=== PATIENT | male | born 1975 | race African-American/Black ===

== ENCOUNTER 2016-05-25 04:52 | Emergency (ER) | payer OTHER ==
[~2016-05-25] VITALS: Ht 182.9 cm; Wt 93.2 kg
[~2016-05-25 04:52] MED LIST: ATOR10TA PO; COMPTAB16 PO; HYDR-2768 PO; VALT1TAB26 PO
[2016-05-25 04:59] VITALS: BP 158/106; PULSE 66; RESP 16; O2SAT 98
[2016-05-25] MEDS ORDERED: ATOR10TA15 PO (05:14)
[2016-05-25] MEDS ORDERED: VALT1TAB PO (05:15)
[2016-05-25] MEDS ORDERED: INDO50CA PO (05:40)
[2016-05-25] MEDS ORDERED: PRED50 PO (05:40)
--- NOTE | 2016-05-25 05:40 | PD ---
HPI Chief Complaint: Musculoskeletal Complaint Time Seen by Provider: 05:26 Travel History International Travel<30 days: No Contact w/Intl Traveler<30days: No Traveled to known affect area: No History of Present Illness HPI The patient is a 40-year-old male with a history of gout who complains of right first metatarsal phalangeal joint pain/swelling since 6 PM yesterday. He also has some joint pain around Lisfranc's joint on that same foot. He denies any fever. He denies any other joint pain except these 2 joints. PFSH Past Medical History Cancer: No Cardiovascular Problems: No High Cholesterol: Yes (BEFORE WEIGHT LOSS) Diabetes: Yes (BEFORE WEIGHT LOSS) Patient Takes Glucophage: No Diminished Hearing: No Endocrine: No Gastrointestinal Disorders: Yes (ESOPHAGITIS) GERD: Yes Gout: Yes Genitourinary: No Hepatitis: No Hypertension: Yes (NO MEDS NOW) Immune Disorder: Yes (HIV POSITIVE: DIAGNOSED 2002) Musculoskeletal: Yes (GOUTY ARTHRITIS) Neurologic: No Psychiatric: No Reproductive: No Thyroid Disease: No Tetanus Vaccination: < 5 Years ?: Not Past Surgical History Abdominal Surgery: Yes (GASTRIC SLEEVE-03/31/15: HAS LOST 140LBS STATED ) AICD: No Body Medical Devices: METAL APPLICANCE LT KNEE SINCE AGE 12 Joint Replacement: No Neurologic Surgery: No Oral Surgery: Yes (WISDOM TEETH) Pacemaker: No Other Surgery: Yes (L KNEE) Social History Alcohol Use: Yes ("ONLY DRINK ON THE WEEKENDS") Tobacco Use: Yes (1/2 PPD) Substance Use: No Allergies-Medications (Allergen,Severity, Reaction): Coded Allergies: Penicillin (Verified Allergy, Severe, ITCHY RASH, 01/23/16) Amoxicillin (Verified Allergy, Mild, RASH, 01/23/16) *MDRO Multi-Drug Resistant Organism (Verified Adverse Reaction, Unknown, ) MRSA Arm wound 2010 Reported Meds & Prescriptions Reported Meds & Active Scripts Active Reported Valtrex (Valacyclovir HCl) 1 Gm Tab 1,000 Mg PO DAILY Atorvastatin (Atorvastatin Calcium) 10 Mg Tab 10 Mg PO HS Review of Systems Except as stated in HPI: all other systems reviewed are Neg Physical Exam Narrative GENERAL: Well-nourished, well-developed patient in moderate apparent distress with his right first metatarsal/phalangeal joint pain. His vital signs show blood pressure 158/106 but the rest the vital signs are normal.. SKIN: Warm and dry. HEAD: Normocephalic. EYES: No scleral icterus. No injection or drainage. NECK: Supple, trachea midline. No JVD or lymphadenopathy. CARDIOVASCULAR: Regular rate and rhythm without murmurs, gallops, or rubs. RESPIRATORY: Breath sounds equal bilaterally. No accessory muscle use. GASTROINTESTINAL: Abdomen soft, non-tender, nondistended. MUSCULOSKELETAL: No cyanosis, or edema. There is some swelling and minimal redness around the first metatarsal phalangeal joint on the right. There is also tenderness at Lisfranc's joint on the right foot. No swelling is noted there. BACK: Nontender without obvious deformity. No CVA tenderness. Data Data Last Documented VS Vital Signs Date Time Temp Pulse Resp B/P Pulse Ox O2 Delivery O2 Flow Rate FiO2 05/25/16 04:59 66 16 158/106 98 Room Air MDM Medical Decision Making Medical Screen Exam Complete: Yes Emergency Medical Condition: Yes Medical Record Reviewed: Yes Differential Diagnosis Acute gout, septic arthritis, osteoarthritis, cellulitis Narrative Course The patient denies any fever. Temperature here is 99.6 but our thermometer has been consistently running about a degree high and needs calibration. The patient appears to have acute gout. Plan: The patient will be given prednisone 50 mg daily for 5 days, Indocin 50 mg 3 times daily for 10 days. He will be given the first doses here. Diagnosis Primary Impression: Acute gout Additional Instructions: It is necessary to follow-up with a director of clinical education as soon as possible. The prednisone is one tablet daily for 5 days and the Indocin is one tablet 3 times daily for 10 days. The director of clinical education needs to follow this to make sure that there is no infection. Med/Other Pt SpecificInfo: Prescription(s) given Scripts Prednisone 50 Mg Tab50 Mg PO DAILY 5 Days Ref 0 Prov:Zach Diana MD 05/25/16 Indomethacin 50 Mg Cap50 Mg PO TID 10 Days Ref 0 Take with food, milk, or antacids to decrease stomach adverse effects. Prov:Zach Diana MD 05/25/16 Disposition: 01 DISCHARGE HOME Condition: Stable Zach Diana MD May 25, 2016 05:40
[2016-05-25] MEDS ORDERED: KETOROLAC TROMETHAMINE 60 MG/2 ML (IM) VIAL IM ONE (05:45)
[2016-05-25] MEDS ORDERED: predniSONE 20 MG TAB PO ONE (05:45)
[2016-05-25 06:26] VITALS: BP 178/89
== END 2016-05-25 06:51 | disposition home or self-care (01) ==
LOC: PHED 04:52
DX: M10.9 Gout, unspecified (principal); F17.210 Nicotine dependence, cigarettes, uncomplicated; B20 Human immunodeficiency virus [HIV] disease; K21.9 Gastro-esophageal reflux disease without esophagitis; F10.10 Alcohol abuse, uncomplicated
CPT/HCPCS: 96372; 99283; J1885; J7512